=== PATIENT | female | born 1970 | race Caucasian/White ===

== ENCOUNTER 2018-07-14 07:05 | Emergency (ER) | payer BC ==
[2018-07-14 07:18] VITALS: BP 149/97
--- NOTE | 2018-07-14 07:34 | UC ---
Throat Pain/Nasal [place] HPI - HPI Summary HPI Summary: Through 8-year-old woman comes today to clinic with a chief complaint of nasal congestion and chest congestion. The nasal congestion has been going on for 2 months. Passenger's time the rhinorrhea is clear. She has sinus pressure. Recently she feels that the nasal congestion is now moving down into her chest. She is using Flonase which helps some but overall condition continues to worsen. She does hear some congestion in her chest especially overnight. No fevers. She does have an albuterol inhaler but she has not used IT. - History of Current Complaint Chief Complaint: UCGeneralIllness Stated Complaint: COUGH,CONGESTED Time Seen by Provider: 07/14/18 07:16 Hx Last Menstrual Period: last month Pain Intensity: 0 - Allergies/Home Medications Allergies/Adverse Reactions: Allergies Allergy/AdvReac Type Severity Reaction Status Date / Time No Known Allergies Allergy Verified 07/14/18 07:18 PMH/Surg Hx/FS Hx/Imm Hx Respiratory History: Asthma - Surgical History Surgical History: Yes Surgery Procedure, Year, and Place: Hemorrhoid surgery; hysterrectomy partial \ . carpal tunnel - Family History Known Family History: Positive: None - Social History Alcohol Use: None Substance Use Type: None Smoking Status (MU): Never Smoked Tobacco - Immunization History Most Recent Tetanus Shot: UNK Review of Systems Constitutional: Negative Skin: Negative Eyes: Negative ENT: Sore Throat, Nasal Discharge, Sinus Congestion, Sinus Pain/Tenderness Respiratory: Negative, Cough Cardiovascular: Negative Gastrointestinal: Negative Motor: Negative Neurovascular: Negative Musculoskeletal: Negative Neurological: Negative Psychological: Negative Is Patient Immunocompromised?: No All Other Systems Reviewed And Are Negative: Yes Physical Exam Triage Information Reviewed: Yes Appearance: No Pain Distress, Well-Nourished, Ill-Appearing - MILD Vital Signs: Initial Vital Signs Temp 98.7 F 07/14/18 07:12 Pulse 98 07/14/18 07:12 Resp 20 07/14/18 07:12 BP 149/97 07/14/18 07:12 Pulse Ox 96 07/14/18 07:12 Vital Signs Reviewed: Yes Eye Exam: Normal Eyes: Positive: Conjunctiva Clear ENT: Positive: Pharyngeal erythema, Nasal congestion, Nasal drainage, TMs normal Neck exam: Normal Neck: Positive: Supple Respiratory: Positive: No respiratory distress, Rhonchi Cardiovascular: Positive: RRR Musculoskeletal Exam: Normal Musculoskeletal: Positive: Strength Intact, ROM Intact Neurological Exam: Normal Neurological: Positive: Alert, Muscle Tone Normal Psychological Exam: Normal Psychological: Positive: Age Appropriate Behavior Skin Exam: Normal Throat Pain/Nasal Course/Dx - Course Course Of Treatment: Review use saline nasal spray and a nETTI pot. Continue Flonase. Use albuterol as needed. Primary care doctor reevaluation IF WORSE. - Differential Dx/Diagnosis Provider Diagnoses: SINUSITIS. BRONCHITIS Discharge - Sign-Out/Discharge Documenting (check all that apply): Patient Departure All imaging exams completed and their final reports reviewed: No Studies - Discharge Plan Condition: Stable Disposition: HOME Prescriptions: Amoxicillin/Clavulanate TAB* [Augmentin TAB 875*] 875 mg PO BID #20 tab Patient Education Materials: Sinusitis (ED), Acute Bronchitis (ED) Forms: *Work Release Referrals: Remberto Millan MD [Primary Care Provider] - Additional Instructions: FOLLOW UP WITH YOUR DOCTOR IF NOT COMPLETELY IMPROVED. GET RECHECKED FOR ANY WORSENING OF YOUR CONDITION OR QUESTIONS OR CONCERNS. - Billing Disposition and Condition Condition: STABLE Disposition: Home
== END 2018-07-14 07:35 | disposition home or self-care (01) ==
LOC: UCEAST 07:05
DX: J32.9 Chronic sinusitis, unspecified (principal); J40 Bronchitis, not specified as acute or chronic
CPT/HCPCS: 99212; G0463

== ENCOUNTER → 2019-02-18 07:04 | Day surgery (SDC) | payer BC ==
[~2019-02-18 07:04] MED LIST: Buffered Lidocaine 1% SYRIN* 1 ML/SYRINGE INTRADERM ONE; Dexamethasone TAB* 4 MG ONE; Dexamethasone TAB* 4 MG PO ONE; DiMENhydriNATE IV* 50 MG/ML VIAL IV PUSH PRN; DiMENhydriNATE IV* 50 MG/ML VIAL ONE; EPHEDrine (Pressors)* 50 MG/ML VIAL ONE; Famotidine IV* 10 MG/ML 2 ML (20 mg) IV ONE; Famotidine IV* 10 MG/ML 2 ML (20 mg) ONE; Gelfoam 12-7 ADSORBABL SPONGE* 1 EA SPONGE ONE; KETAMINE HCL* 50 MG/ML 10 ML VIAL ONE; Lactated Ringers 1000 ML Bag* 1,000 ML IV SCH; Lidocaine 2% EPI 1:200000 MPF*10-20 ML VIAL ONE; Lidocaine 2% JELLY* 6 ML JELLY TOPICAL ONE; Lidocaine 2% PF * 5 ML VIAL ONE; Metoprolol Tartrate IV* 1 MG/ML 5 ML VIAL ONE; Midazolam* 1 MG/ML 2 ML VIAL (2 MG) ONE; Midazolam* 1 MG/ML 5 ML VIAL (5 MG) ONE; Morphine 4 MG/ML VIAL (1 ml) 4 MG/ML VIAL IV PRN; Naloxone* 0.4 MG/ML 1 ML VIAL IV PRN; Ondansetron ODT TAB* 4 MG ONE; Ondansetron TAB* 4 MG PO ONE; Oxymetazoline 0.05% NASAL SPR* 15 ML BTL ONE; PROCHLORPERAZINE INJ 5 MG/ML 2 ML VIAL IV PRN; PROCHLORPERAZINE INJ 5 MG/ML 2 ML VIAL ONE; Propofol* 10 MG/ML 20 ML BTL ONE; Scopolamine 1.5 mg* PATCH TRANSDERM PRN; Scopolamine PATCH Remove* 1 NOTE MISC PATCH OFF ONE; Triamcinolone Acetonide* 40 MG/ML 1 ML VIAL ONE; fentaNYL* 50 MCG/ML 2 ML VIAL (100 MCG VIAL) IV PRN; fentaNYL* 50 MCG/ML 2 ML VIAL (100 MCG VIAL) ONE; hydrALAZINE IV* 20 MG/ML VIAL ONE; oxyCODONE/Acetamin 5/325 MG* TAB PO PRN
--- NOTE | 2019-02-18 13:43 | OP ---
DATE OF OPERATION: 02/18/19 - [facility] DATE OF : 74 SURGEON: Dilip Velasquez MD. PRE-OP DIAGNOSES: 1. Chronic sinusitis with nasal polyposis. 2. Deviated nasal septum and hypertrophied turbinates with nasal dyspnea. POST-OP DIAGNOSES: 1. Chronic sinusitis with nasal polyposis. 2. Deviated nasal septum and hypertrophied turbinates with nasal dyspnea. OPERATIVE PROCEDURES: Bilateral videoendoscopic maxillary antrostomy, bilateral videoendoscopic anterior ethmoidectomy, resection of left remedios bullosa, and submucosal resection of the inferior turbinates. BRIEF HISTORY: This is a pleasant 48-year-old with symptoms of nasal congestion , nasal dyspnea, markedly hypertrophied nasal polypoidal mass in the left nasal anterior choana with a large remedios bullosa, OMC obstruction bilaterally with soft tissue thickening, and patchy opacification of the ethmoid, failing medical management including steroids. DESCRIPTION OF PROCEDURE: The patient was taken to the operating room, general anesthetic was given, the patient was intubated. Nose was decongested with Afrin- placed pledgets. Subsequently, 2% lidocaine with epinephrine was infiltrated in the mucosa of the turbinates, septum, middle turbinate, polypoidal mass, uncinate region, and ethmoidal bulla. We initially turned our attention to the left side. The remedios bullosa was resected out on its medial surface, with the entire bone and the plate removed. The polyp that was affiliated with this mucosa was also resected out completely. The uncinate process was then identified, peeled out anteriorly, microshaver was used to enlarge the antral opening. The ethmoidectomy was carried out by entering the ethmoidal bulla and resecting to the nasofrontal duct and then laterally towards the lamina papyracea. Once this adequate resection was carried out, the inferior turbinate was resected partially by cauterizing the submucosal tissue approximately one-third of the depth of the turbinate all the way through the length of it. The area was then packed with Surgifoam, which was soaked with Kenalog. We turned our attention to the right side. Here too, again, the uncinate process was peeled out anteriorly. Microshaver was used to remove it completely. Antrostomy was further enlarged. The ethmoidal bulla was resected out using the microshaver extending superiorly and laterally towards the lamina papyracea and then subsequently, in a similar fashion, the inferior turbinate on the right side was cauterized in the submucosal plane to the length of it, resecting out some of the bone and then cauterizing the bone to prevent any bleeding. Once this was done, the area between the middle turbinate and lateral nasal wall was packed with Surgifoam and then the patient was awakened and sent to the recovery room in stable condition. COUNTS: Instrument and sponge counts were correct. BLOOD LOSS: Minimal. [id number]/[facility] #: [id number] [facility] HOSPITALFrancesca
[2019-02-18 15:34] VITALS: BP 138/68
== END | disposition home or self-care (01) ==
LOC: OR 07:04
PROVIDERS: ATTEND Otolaryngology
DX: J32.9 Chronic sinusitis, unspecified (principal); J34.2 Deviated nasal septum; J33.9 Nasal polyp, unspecified; J31.0 Chronic rhinitis; K21.9 Gastro-esophageal reflux disease without esophagitis; J34.3 Hypertrophy of nasal turbinates
CPT/HCPCS: 88305; A9270-GY; J0360; J0780; J1240; J2250; J2704; J3010; J3301; J3490; J8540

== ENCOUNTER 2019-04-23 15:38 | Emergency (ER) | payer BC ==
[2019-04-23 16:13] VITALS: BP 138/78
--- NOTE | 2019-04-23 17:36 | UC ---
Knee Pain HPI - HPI Summary HPI Summary: 48 yo female with left knee pain that started yesterday while at work no injury pain worsening worse with ambulation or stairs does not lock up or give away - History of Current Complaint Chief Complaint: UCLowerExtremity Stated Complaint: L KNEE PAIN Time Seen by Provider: 04/23/19 17:36 Hx Last Menstrual Period: 2014 Onset/Duration: Gradual Onset, Lasting Days Severity Initially: Mild Severity Currently: Mild Pain Intensity: 3 - worse when standing or ambulating Pain Scale Used: 0-10 Numeric Character: Sharp, Aching Aggravating Factor(s): Movement, Weight Bearing, Prolonged Standing, Stairs Alleviating Factor(s): Rest Associated Signs And Symptoms: Positive: Swelling Able to Bear Weight: Yes Legs: 1 - tender/swollen - Allergies/Home Medications Allergies/Adverse Reactions: Allergies Allergy/AdvReac Type Severity Reaction Status Date / Time fish derived Allergy Vomiting Verified 04/23/19 16:13 Latex, Natural Rubber Allergy OCCASIONAL Verified 04/23/19 16:13 BLISTERS milk Allergy Swelling Verified 04/23/19 16:13 soy Allergy Swelling Verified 04/23/19 16:13 wheat Allergy Swelling Verified 04/23/19 16:13 NUTS Allergy Swelling Uncoded 04/23/19 16:13 PMH/Surg Hx/FS Hx/Imm Hx Previously Healthy: Yes - Surgical History Surgical History: Yes Surgery Procedure, Year, and Place: Hemorrhoid surgery;. 2015-HYSTERECTOMY partisl. carpal tunnel RELEASE-[facility] - Family History Known Family History: Positive: Non-Contributory - Social History Alcohol Use: None Substance Use Type: None Smoking Status (MU): Never Smoked Tobacco Have You Smoked in the Last Year: No - Immunization History Most Recent Tetanus Shot: UNK Review of Systems All Other Systems Reviewed And Are Negative: Yes Constitutional: Positive: Negative Skin: Positive: Negative Eyes: Positive: Negative ENT: Positive: Negative Respiratory: Positive: Negative Cardiovascular: Positive: Negative Gastrointestinal: Positive: Negative Genitourinary: Positive: Negative Motor: Positive: Negative Neurovascular: Positive: Negative Musculoskeletal: Positive: Arthralgia - left knee Neurological: Positive: Negative Psychological: Positive: Negative Physical Exam Triage Information Reviewed: Yes Appearance: Well-Appearing, No Pain Distress, Well-Nourished Vital Signs: Initial Vital Signs Temp 98.8 F 04/23/19 16:06 Pulse 67 04/23/19 16:06 Resp 16 04/23/19 16:06 BP 138/78 04/23/19 16:06 Pulse Ox 99 04/23/19 16:06 Vital Signs Reviewed: Yes Eyes: Positive: Conjunctiva Clear ENT: Positive: Hearing grossly normal. Negative: Nasal congestion, Nasal drainage, Trismus, Muffled voice, Hoarse voice Neck: Positive: Supple Respiratory: Positive: Lungs clear, Normal breath sounds, No respiratory distress Cardiovascular: Positive: RRR, No Murmur Musculoskeletal: Positive: Other: - see image Neurological: Positive: Alert Psychological Exam: Normal Skin Exam: Normal Diagnostics - Radiology No standard instances Radiology Interpretation Completed By: Radiologist Summary of Radiographic Findings: small effusion Knee Pain Course/Dx - Differential Dx/Diagnosis Provider Diagnosis: Left knee tendonitis Discharge - Sign-Out/Discharge Documenting (check all that apply): Patient Departure All imaging exams completed and their final reports reviewed: Yes - Discharge Plan Condition: Stable Disposition: HOME Prescriptions: Naproxen [Naproxen 500 mg tab] 500 mg PO BID PRN #20 tablet PRN Reason: Pain Patient Education Materials: Swollen Knee Joint (ED) Forms: *Work Release Referrals: [facility] [Outside] - As Soon As Possible Remberto Millan MD [Primary Care Provider] - If Needed Additional Instructions: ice twice to four times daily rest elevate naproxen recheck next week if not better - Billing Disposition and Condition Condition: STABLE Disposition: Home
== END 2019-04-23 17:50 | disposition home or self-care (01) ==
LOC: UCEAST 15:38
DX: M76.9 Unspecified enthesopathy, lower limb, excluding foot (principal); Z91.040 Latex allergy status
CPT/HCPCS: 99212; G0463